=== PATIENT | male | born 1975 | race Caucasian/White ===

== ENCOUNTER 2018-10-15 23:55 | Inpatient (IN) | payer BC ==
[~2018-10-15] VITALS: Ht 180.3 cm; Wt 127.0 kg
--- NOTE | 2018-10-16 | NUR ---
Pt to surgical floor via EMS stretcher. No distress noted. Pt ambulatory to bed without difficulty. Assessment WNL except pain 4/10 in RUQ. Pt states pain is controlled for now.
--- NOTE | 2018-10-16 00:15 | NUR ---
Loree GLEASON alerted thatpatiet is admitted.
[2018-10-16] MEDS ORDERED: GLUCOPHAGE500 MG/TAB PO (01:26)
[2018-10-16] MEDS ORDERED: NEXIUM 24HR20 M1 PO (01:27)
[2018-10-16] MEDS ORDERED: PRINIVIL5 MG PO (01:27)
[2018-10-16 01:29] VITALS: BP 117/78; PULSE 101; TEMP 99.4
[2018-10-16 01:46] LABS: HEMATOCRIT 39.1 % (42.0-52.0); HEMOGLOBIN 13.1 g/dl (13.5-18.0)
[2018-10-16 02:41] LABS: AMORPHOUS CRYSTAL Present /uL; LEUCINE CRYSTAL Present /hpf; PH 5 (5-8); SQUAMOUS EPITHELIAL None Seen /hpf; URINE APPEARANCE Turbid; URINE BACTERIA None Seen /hpf; URINE BILIRUBIN Negative (NEGATIVE); URINE BLOOD Negative (NEGATIVE); URINE COLOR Yellow; URINE GLUCOSE Negative (NEGATIVE); URINE KETONE Negative (NEGATIVE); URINE LEUKOCYTE ESTERASE Negative (NEGATIVE); URINE NITRATE Negative (NEGATIVE); URINE PROTEIN(semi-quant) Negative (NEGATIVE); URINE RBC 20-50 /hpf
[2018-10-16 03:16] LABS: COLLECTION METHOD CLEAN CATCH
--- NOTE | 2018-10-16 03:56 | NUR ---
Spoke with Loree GLEASON about if HIDA scan is emergent. She states that it is not emergent and to let Dr. Ann know in the AM that the HIDA scan cannot be done at this time.
[2018-10-16 04:00] VITALS: BP 108/52; PULSE 82; TEMP 97.8
--- NOTE | 2018-10-16 06:19 | NUR ---
Pt c/o RUQ pain of 7/10. Pt has not slept well since admission due to pain. PRN pain medication given. No other needs noted.
--- NOTE | 2018-10-16 07:19 | NUR ---
Dr. Ann called to make him aware that HIDA scans are only done on weekends on an emergent basis. Marissa Recio says that the pts condition is considered emergent and the scan needs to be done today.
--- NOTE | 2018-10-16 07:23 | NUR ---
Tiffanie (weapons mechanic-nuclear medicine) called to make her aware of the HIDA scan. She stated it would take 4 hours to ge the isotope and then the scan will take 60 minutes. Carter AQUINO made aware.
[2018-10-16 07:30] VITALS: BP 159/99; PULSE 79; TEMP 97.6
[2018-10-16 07:36] LABS: BASO % 0.4 % (0.0-2.0); EOS # 0.1 (0.0-0.7); EOS % 1.3 % (0-4.0); GRAN # 6.5 (1.4-6.5); GRAN % 64.7 % (42.2-75.2); HEMATOCRIT 37.6 % (42.0-52.0); HEMOGLOBIN 12.5 g/dl (13.5-18.0); LYMPH # 2.2 (1.2-3.4); LYMPH % 22.2 % (20.0-51.0); MEAN CELL VOLUME 89 fl (80.0-100.0); MEAN CORPUSCULAR HEMOGLOBIN 29 pg (27.0-31.0); MEAN CORPUSCULAR HGB CONC 33 g/dl (33.0-37.0); MEAN PLATELET VOLUME 10.1 fl (7.4-10.4); MONO # 1.1 (0.1-0.6); MONO % 10.7 % (1.7-9.3); PLATELET COUNT 265 K/mm3 (130-400); RED BLOOD COUNT 4.25 M/mm3 (4.20-5.60); REDCELL DISTRIBUTION WIDTH-CV 12.9 % (11.5-14.5)
[2018-10-16 07:46] LABS: ALBUMIN 3.9 gm/dL (3.5-5.0); BILIRUBIN,TOTAL 1.2 mg/dL (0.0-1.0); CALCIUM 8.6 mg/dL (8.4-10.2); CREATININE, serum 0.7 (0.66-1.25); POTASSIUM 4.1 mmol/L (3.4-5.0); TOTAL PROTEIN 7.2 gm/dL (6.4-8.2)
--- NOTE | 2018-10-16 08:54 | NUR ---
Assessment completed, alert/oriented, vital signs stable, reports pain 5-8/10 in RUQ, getting some releif from Fent[place] and [place], Have spoke with and he would like HIDA scan today / notified Nuc[employer]Med store protection specialist, his BS + throughout, heart RRR/distal pulses are palapble, lugns CTA/ no resp.difficulty, family present in the room and I have discussed plan of care with them
--- NOTE | 2018-10-16 08:58 | NUR ---
LE met with the patient and his , Petra to discuss a discharge plan. The patient lives in [place] with Petra. The patient does not have any DME and reports independence with ADLs. The patient's PCP's are Dr. Grigsby and Dr. Case. The patient receives his medications from [facility]. The patient does not have advanced directives in the EMR and he was not interested in obtaining a DPOA-HC form at this time. The patient plans to return home upon discharge. There are no additional needs at this time.
[2018-10-16 09:42] VITALS: BP 107/60; PULSE 81; TEMP 98.6
[2018-10-16 15:06] LABS: HEMATOCRIT 39.3 % (42.0-52.0); HEMOGLOBIN 13.2 g/dl (13.5-18.0)
[2018-10-16 15:11] LABS: INR 1.3 (0.8-3.0); PROTHROMBIN TIME 14.5 SECONDS (9.7-12.8)
[2018-10-16 17:50] VITALS: BP 97/43; PULSE 88; TEMP 98.1
--- NOTE | 2018-10-16 19:20 | NUR ---
Pt up to chair. at bedside. Pt c/o pain /10 in RUQ. Pain is itermittent and worsens when standing or taking deep breaths. Pt requesting pain medication. Lungs clear. BS+. Pt denies nausea/vomiting. Pt refusing SCDs, but is ambulatory. No further needs. Will continue to monitor.
--- NOTE | 2018-10-16 19:52 | NUR ---
Pt still rating pain 7/10 in RUQ. Pain is sharp, intermittent and worsened by standing and deep breathing. Pt is awake and alert. PRN pain medication administered.
[2018-10-16 20:09] VITALS: BP 108/61; PULSE 87; TEMP 98.9
[2018-10-17 00:33] VITALS: BP 108/54; PULSE 84; TEMP 99.1
--- NOTE | 2018-10-17 01:07 | NUR ---
Pt requested pain medication when aide took his VS. It had not been enough time since the last dose. He was rating pain 7/10 in RUQ. Pain is sharp and intermittent. PRN pain medication administered.
[2018-10-17 04:48] VITALS: BP 93/60; PULSE 84; TEMP 99
--- NOTE | 2018-10-17 06:20 | NUR ---
Pt slept periodically throughout the night in chair. Pain controlled with PRN pain medications. No needs noted this AM.
[2018-10-17 07:01] LABS: BASO % 0.3 % (0.0-2.0); EOS # 0.1 (0.0-0.7); EOS % 1.1 % (0-4.0); GRAN # 6.9 (1.4-6.5); GRAN % 67.6 % (42.2-75.2); HEMATOCRIT 37.5 % (42.0-52.0); HEMOGLOBIN 12.3 g/dl (13.5-18.0); LYMPH # 2.1 (1.2-3.4); MEAN CELL VOLUME 90 fl (80.0-100.0); MEAN CORPUSCULAR HEMOGLOBIN 30 pg (27.0-31.0); MEAN CORPUSCULAR HGB CONC 33 g/dl (33.0-37.0); MEAN PLATELET VOLUME 10.2 fl (7.4-10.4); MONO # 0.9 (0.1-0.6); MONO % 9.3 % (1.7-9.3); PLATELET COUNT 263 K/mm3 (130-400); RED BLOOD COUNT 4.16 M/mm3 (4.20-5.60); REDCELL DISTRIBUTION WIDTH-CV 12.5 % (11.5-14.5)
[2018-10-17 07:11] LABS: ALBUMIN 3.7 gm/dL (3.5-5.0); BILIRUBIN,TOTAL 1.2 mg/dL (0.0-1.0); CALCIUM 8.7 mg/dL (8.4-10.2); CREATININE, serum 0.72 (0.66-1.25); POTASSIUM 4.4 mmol/L (3.4-5.0)
[2018-10-17 08:00] VITALS: BP 113/65; PULSE 88; TEMP 97.6
--- NOTE | 2018-10-17 08:58 | NUR ---
Assessment completed, alert/oriented, vital signs stable/ T-max 99.1 overnight, he does report waking up hot/diaphoretic at one point in the night, reports pain unchanged from yesterday, rated 7-8 at the worst and is brought on by deep breathing or movement, abdomen is soft/ RUQ tender to palpation, heart RRR/ distal pulses are palpable, lungs CTA/ no resp.difficulty noted, labs unchanged from yesterday/ Billirubin still 1.2, will discuss patients plan of care with when he arrives
[2018-10-17 12:00] VITALS: BP 112/68; PULSE 85; TEMP 97.5
[2018-10-17] MEDS ORDERED: PERCOCET 325 MG1 TA3 PO (14:00)
[2018-10-17] MEDS ORDERED: DULCOLAX STOOL100 MG PO (14:01)
--- NOTE | 2018-10-17 15:54 | NUR ---
Discharge orders discussed with the patient and his , instructed to follow up with on 10/21/18 as previously scheduled, instructed to take pain meds and stool softners as prescribe/ scripts provided for these new meds, instructed to stay on a low fat diet and advance as tolerated, instructed to have labs drawn in 1 week (CBC and CMP), instructed on activity as tolerated but to avoid over exerting or strenous activity/ no heavy lifting, IV removed from left arm, leaving with his , I personally escorted them to the door
== END 2018-10-17 15:00 | disposition home or self-care (01) | DRG 921 ==
LOC: SURG 23:55
PROVIDERS: Internal Medicine; Nurse Practitioner; Surgery; ADMIT Internal Medicine
DX: L76.32 Postprocedural hematoma of skin and subcutaneous tissue following other procedure (principal); R19.01 Right upper quadrant abdominal swelling, mass and lump; E11.9 Type 2 diabetes mellitus without complications; F17.210 Nicotine dependence, cigarettes, uncomplicated
CPT/HCPCS: 99223-AI; 99239; A9537; J1170; J2405; J2543; J3010; J7030

== ENCOUNTER 2019-05-26 17:17 | Observation (INO) | payer BC ==
[~2019-05-26 17:17] MED LIST: DULCOLAX STOOL100 MG PO; GLUCOPHAGE500 MG/TAB PO; NEXIUM 24HR20 M1 PO; PERCOCET 325 MG1 TA3 PO; PRINIVIL5 MG PO
[2019-05-26] MEDS ORDERED: PERCOCET 325 MG1 TAB PO (19:44)
[2019-05-26] MEDS ORDERED: LIPITOR20 MG PO (19:44)
[2019-05-26 19:46] VITALS: BP 131/85; PULSE 18; TEMP 98.1
[2019-05-26 23:55] VITALS: BP 125/73; PULSE 81; TEMP 98.4
[2019-05-27] VITALS (9 sets, daily range): BP systolic 122–141; BP diastolic 66–98; PULSE 70–84; TEMP 97.7–98.3
--- NOTE | 2019-05-27 04:43 | NUR ---
Patient arrive to the floor at about 1945 with by his side. States he has had this pain to his RLQ for about 4 days. IV started in right hand. Dr. Pak notified about arrival and orders received. Administered IV morphine for pain level 5/10. Patient states it helped a little bit, but requests something else. [place] 5/325mg 2 tabs ordered and administered. Patient states this doesn't help pain at all. PRN Morphine given at 0430. Plan is for surgery today. continues to be at bedside. Will continue to monitor patient.
[2019-05-27 06:53] LABS: HEMATOCRIT 46.2 % (42.0-52.0); MEAN CELL VOLUME 90 fl (80.0-100.0); MEAN CORPUSCULAR HEMOGLOBIN 31 pg (27.0-31.0); MEAN CORPUSCULAR HGB CONC 35 g/dl (33.0-37.0); PLATELET COUNT 157 K/mm3 (130-400); RED BLOOD COUNT 5.16 M/mm3 (4.20-5.60); REDCELL DISTRIBUTION WIDTH-CV 12.9 % (11.5-14.5)
[2019-05-27 07:01] LABS: INR 1.1 (0.8-3.0)
[2019-05-27 07:03] LABS: CALCIUM 9.1 mg/dL (8.4-10.2); CREATININE, serum 0.71 (0.66-1.25); POTASSIUM 3.9 mmol/L (3.4-5.0)
--- NOTE | 2019-05-27 08:03 | NUR ---
REPORT RECEIVED FROM NIGHT NURSE, PATIENT SURGERY ANTICIPATED WONDERING WHAT TIME SURGERY WILL BE. NOT PRESENT CURRENTLY, WAS IN ROOM EARLIER. CALL LIGHT WITHIN REACH, NO OTHER QUESTIONS, CONCERNS REPORTED.
--- NOTE | 2019-05-27 08:28 | NUR ---
Patient sitting in bedside recliner at this time, at bedside. Patient is alert and oriented, answers questions appropriately. VS WNL. Patient currently denies abdominal pain or nausea. Discussed tenative OR plans with patient. Patient denies further needs at this time, call light within reach.
--- NOTE | 2019-05-27 09:17 | NUR ---
LE met with the patient and the patient's , Petra (ph#[phone]), to discuss discharge plan. The patient lives in [place] with his and their [id number], son. He reports independence with ADLs and does not have any DME. The patient's PCP is Dr. Parra and he receives his medications at [facility] in [place]. He reports no difficulties obtaining his meds. The patient plans to return home with his family upon discharge. No additional needs at this time.
--- NOTE | 2019-05-27 09:31 | NUR ---
IV FLUIDS ADDED TO PERIPHERAL INT SITE TO RIGHT WRIST, FLUSHED WELL/WITH NO COMPLAINTS WITH NORMAL SALINE. PATIENT VOICING ANXIOUSNESS TO "GET THIS DONE". AT PRESENT IN ROOM. NO OTHER CONCERNS/QUESTIONS REPORTED.
--- NOTE | 2019-05-27 10:17 | NUR ---
LUNG SPLITTER PROVIDING CARE TODAY
--- NOTE | 2019-05-27 10:39 | NUR ---
Initial visit; Patient and his thanked Medicare Coordinator for lookiing in on him and offering God's blessings.
--- NOTE | 2019-05-27 14:15 | NUR ---
TO ROOM VIA HOSPITAL BED FROM PACU WITH PACU NURSE ACCOMPANYING PATIENT. PATIENT AWAKE/ALERT. OXYGEN PER NASAL CANNULA AT 2 LPM. IV FLUIDS TO R FOREARM. PAIN LEVEL 3-4/10.
--- NOTE | 2019-05-27 14:26 | NUR ---
DENIES URGE TO VOID CURRENTLY. CALL LIGHT/WATER PITCHER WITHIN REACH. NO SKID HOSPITAL SOCKS ON. AT BEDSIDE.
--- NOTE | 2019-05-27 17:25 | NUR ---
PATIENT DISMISSED VIA AMBULATORY, ESCORTED BY STAFF AIDE, PATIENT'S . PATIENT'S PERSONAL BELONGING COLLECTED BY SPOUSE, IN PATIENT'S POSSESSION. REVIEWED HOME INSTRUCTIONS REGARDING RX MEDS, DOCTOR ORDERED INSTRUCTIONS, RETURN APPTS WITH NO ADDITIONAL QUESTIONS/CONCERNS REPORTED. PATIENT TO BE TRANSPORTED HOME VIA PRIVATE CAR.
== END 2019-05-27 18:07 | disposition home or self-care (01) ==
LOC: SURG 17:17
PROVIDERS: ADMIT Surgery
DX: K38.8 Other specified diseases of appendix (principal); F17.210 Nicotine dependence, cigarettes, uncomplicated; G47.33 Obstructive sleep apnea (adult) (pediatric); K21.9 Gastro-esophageal reflux disease without esophagitis; E11.9 Type 2 diabetes mellitus without complications; Z79.84 Long term (current) use of oral hypoglycemic drugs; Z90.49 Acquired absence of other specified parts of digestive tract
CPT/HCPCS: G0378; J0690; J1170; J1885; J1956; J2270; J2405; J2704; J3010; J7030